=== PATIENT | female | born 1995 ===

== ENCOUNTER 2018-03-17 09:54 | Inpatient (IN) ==
[2018-03-17] MEDS ORDERED: Ondansetron 4 MG/2 ML VIAL IVP PRN (10:25)
[2018-03-17] MEDS ORDERED: Famotidine 20 MG/2 ML VIAL IVP PRN (10:25)
[2018-03-17] MEDS ORDERED: Naloxone 0.4 MG/ML INJ IVP PRN (10:25)
[2018-03-17] MEDS ORDERED: *HR* Nalbuphine 10 MG/ML AMPUL IVP PRN (10:25)
[2018-03-17] MEDS ORDERED: Lidocaine 1% 20 ML MDV INFILT PRN (10:25)
[2018-03-17] MEDS ORDERED: Ringers Solution, Lactated 1,000 ML IVC SCH (10:30)
[2018-03-17] MEDS ORDERED: miSOPROStol 25 MCG TABLET PO PRN (10:30)
--- NOTE | 2018-03-17 10:34 | OB/GYN History & Physical ---
Date of Encounter: 03/17/18 Time of Encounter: 10:30 Assessment and Plan (1) First in adolescent 16 years of age or older in third trimester Current visit: Yes Status: Acute (2) 39 weeks gestation of Current visit: Yes Status: Acute (3) Elective induction of labor planned Current visit: Yes Status: Acute Patient will be induced with Cytotec by mouth possibly Pitocin if this does not work plan is to anticipate vaginal delivery History of Present Illness HPI: Ms. Peña is a 22 year old female 1 para 0 at 39 and one sevenths weeks by last menstrual period equal to a 16-3/7 week ultrasound who presented for induction of labor secondary to term with favorable cervix. Patient was seen in the office yesterday noted to be a good 4 cm. Patient originally wanted to try going to manage labor but with her living over an hour from the hospital she was getting concerned and just wanted to be induced. She denies any leaking of fluid or vaginal bleeding still having good movement. Patient is GBS negative, rubella positive, Varicella positive, Rh+ Past Med Surg Social Fam HX - Past Medical History Source: patient, old records reviewed Medical history: no medical history Psychiatric history: no psych history - Past Surgical History Surgical History: other (Right ovarian cystectomy) - Social History Smoking Status: Current every day smoker Smokeless Tobacco Status: No Alcohol use: none Drug use: none Occupational status: unemployed Current living situation: Home - Independent Activity Level: Independent ambulation Recent Out of Country Travel Within the Last 8 Weeks: No Exposure or Possible Exposure to Illness During Travel: No - Additional Family History Additional family history: Family history noncontributory Obstetrical History - Pregnancies : 1 Para: 0 Livin Review of System OB All systems PM: reviewed and no additional remarkable complaints except as stated Exam - Constitutional Constitutional: well developed, well nourished, no acute distress, average body habitus - HEENT HEENT: EOMI, PERRL, Mucus Membranes Moist - Neck Neck exam: full ROM - Lungs Respiratory exam: CTAB - Cardiovascular Cardiovascular exam: RRR - Abdomen Abdomen: Present: bowel sounds normal, gravid ( heart tones 140s reactive occasional contractions) - Vagina Vagina: Present: normal moisture - Cervix Dilation: 4 Effacement: 90 Station: 0 Results All other labs normal. - VTE Reasons for not Prescribing Prophylaxis: Treatment not Indicated - Low risk for VTE
[2018-03-17 10:54] LABS: Basophils # 0.1 K/mcL (0.0-0.2); Basophils % 0.4 %; Eosinophils # 0.1 K/mcL (0.0-0.6); Hematocrit 40.6 % (35.3-44.9); Hemoglobin 14.1 g/dL (11.5-15.4); Immature Granulocytes % 0.9 % (0-4); Lymphocytes # 2.4 K/mcL (0.6-4.6); Lymphocytes % 16.6 %; Mean Corpuscular HGB Conc 34.7 g/dL (31.6-35.5); Mean Corpuscular Hemoglobin 35.1 pg (28.0-33.3); Mean Platelet Volume 9.2 fL (9.4-12.4); Monocytes # 0.9 K/mcL (0.0-1.3); Monocytes % 6.6 %; Neutrophils # 10.6 K/mcL (1.6-8.9); Platelet Count 316 K/mcL (140-400); Red Blood Count 4.02 M/mcL (3.82-4.97); Red Cell Distribution Width 14.6 % (11.5-14.5); Segmented Neutrophils % 74.5 %
[2018-03-17 11:02] LABS: Amphetamine Screen,Urine Negative ng/mL (Cutoff=1000); Barbiturate Screen,Urine Negative ng/mL (Cutoff=200); Benzodiazepines Screen,Urine Negative ng/mL (Cutoff=200); Cannabinoid Screen,Urine Negative ng/mL (Cutoff = 50); Cocaine Screen,Urine Negative ng/mL (Cutoff= 300); Opiate Screen,Urine Negative ng/mL (Cutoff=300); Phencyclidine Screen,Urine Negative ng/mL (Cutoff=25)
[2018-03-17 11:14] LABS: Alanine Aminotransferase 16 Units/L (7-52); Aspartate Amino Transferase 22 Units/L (13-39); BUN/Creatinine Ratio 9 (6-26); Blood Urea Nitrogen 6 mg/dL (6-20); Lactate Dehydrogenase 144 Units/L (140-271); Uric Acid 4.9 mg/dL (2.3-7.6); eGFR For African Americans > 60 (> 60); eGFR For Non-African Americans > 60 (> 60)
--- NOTE | 2018-03-17 15:08 | OB Labor Progress Note ---
Date of Encounter: 03/17/18 Time of Encounter: 15:06 Labor Progress Note - Subjective Subjective: Patient doing well. Patient denies any pain at this time. Discussed POC with patient. Patient denies any questions or concerns. - Cervix Cervix: 5/90/0 - Heart Tones Heart Tones: 120 bpm moderate amount of variability +15x15 accels no decels noted. - [place]: 2-4 min apart - Interventions Interventions: SVE, AROM moderate amount of clear fluid. Patient tolerated well. - Plan Plan: Continue labor management will start Pitocin if needed for effective labor pattern anticipate
[2018-03-17] MEDS ORDERED: *HR* FentaNYL (PF) 100 MCG/2 ML VIAL ONE (15:35)
[2018-03-17] MEDS ORDERED: Bupivacaine-MPF 0.25% 10 ML VIAL ONE (15:35)
[2018-03-17] MEDS ORDERED: EPHEDrine 50 MG/ML VIAL IVP PRN (15:59)
[2018-03-17] MEDS ORDERED: *HR* FentaNYL (PF) 100 MCG/2 ML VIAL EP ONE (15:59)
[2018-03-17] MEDS ORDERED: Bupivacaine-MPF 0.25% 10 ML VIAL EP ONE (15:59)
[2018-03-17] MEDS ORDERED: Epidural Premix (fent/bupiv) 110 ML EP SCH (16:00)
--- NOTE | 2018-03-17 16:02 | Anesthesia Procedures ---
Date of Encounter: 03/17/18 Time of Encounter: 16:01 Procedures: Anesthesia - Epidural/Spinal Patient ID/Chart reviewed: Yes Patient examined: Yes OB Eval: Gestational age: 39 OB Eval: : 1 OB Eval: Hx Para: 0 OB Eval: Dilated at (cm): 5 OB Eval: Contractions: Non-stressed pattern Consent Obtained: Yes Supplemental Oxygen: None/Room Air Site Prep: Aseptic Technique, 0.5% Chlorhexidine/Alcohol Patient position: upright Local Anesthetic: Lidocaine 1% Amount of Local Anesthetic used: 3 Touhy Needle Gauge: 18 Touhy Needle Depth (cm): 4 Catheter Depth at Skin (cm): 10 Test Dose (1.5% Lido + Epi): Volume given (mls): 3 Test Dose Result: Negative Loading Dose: 0.25% Marcaine (mls): 4 Loading Dose: Fentanyl (mcg): 100 Loading Dose: Other: 4ml nss Loading Dose Administered: Thru Touhy Needle Infusion Med: 0.125% Bupivacaine w/ 2 mcg/ml Fentanyl Infusion Rate (mls/hr): [address]: Tegaderm Interspace Used: L3-L4 Loss of Resistance (HERNAN): Yes Blood: No CSF: No Paresthesia: No
[2018-03-17] MEDS ORDERED: Epidural Premix (fent/bupiv) 110 ML EP ONE (16:52)
--- NOTE | 2018-03-17 17:03 | OB Labor Progress Note ---
Date of Encounter: 03/17/18 Time of Encounter: 17:00 Labor Progress Note - Subjective Subjective: The patient very comfortable after her epidural at this time - Cervix Cervix: 8/100/+1 - Heart Tones Heart Tones: heart tones 140s reactive - [place]: Contractions every 2 minutes - Plan Plan: Anticipate normal spontaneous vaginal delivery
[2018-03-17] MEDS ORDERED: Oxytocin 20 units/ LR 1000 mL 20 UNIT/1,000 ML BAG IVC ONE (17:43)
--- NOTE | 2018-03-17 21:45 | OB/GYN Procedure Note ---
Delivery - Delivery Date: 03/17/18 Provider: Ervin wKon Delivery induction: misoprostol Delivery augmentation: rupture of membranes, pitocin Delivery monitor: external FHT, external uterine Anesthesia: local, epidural Estimated Blood Loss: 100 - Infant (s) A Delivery Date: 03/17/18 Infant Delivery Time: 21:13 Presentation: vertex Position: JUANI Route of delivery: vacuum extraction Gender: Male Viability: Viable Pounds: 6 Ounces: 11 Weight Gram: 3.045 kg at 1 minute: 9 at 5 mins: 9 Shoulder Dystocia: not encountered Specimens collected: cord blood Placenta: spontaneous Cord: 3 umbilical vessels - Repair Episiotomy: none Laceration Description: Perineal - 1st Degree, Labial (right) - Complications Delivery complications: none Delivery comments: Patient is a 22-year-old 1 para 0 at 39-1/7 weeks who presented for induction of a second term with favorable cervix. Patient was seen in the office yesterday was 4 cm patient was asking. Delivered and living an hour from the hospital we accommodated her she is brought to labor and delivery where she received by mouth Cytotec then she was artificially ruptured with clear fluid noted. Patient did receive an epidural soon after this and progressed appropriately patient became complete the contractions spaced out. We did augment with Pitocin once patient is having contractions we had the patient stop pushing. During the pushing phase patient started having decelerations down to the 70s with slow return to baseline. The patient was up but the heart tones did not come back up to normal exercise this time a vacuum extraction would be performed. We did get consent from the mother the [place] vacuum was applied increased to 500 mmHg then with 2 pulls with 1 involuntary pop off we delivered a viable male infant in right occiput anterior presentation at 2112. There was no nuchal cord, no meconium, the was bulb suctioned the abdomen. Apgars were 9 at 1 minute, 9 at 5, infant weight was 6 lbs. 11 oz. Cord blood was collected placenta was then spontaneously delivered with a three-vessel cord. Placenta was examined and was noted have a large clot in the posterior surface suggestive of an abruption. Placenta will be sent to pathology. Cans Vacuum Tester Dr. Kwon, anesthesia epidural, with local, estimated blood loss 100 mL. Patient was noted to have a first-degree perineal laceration extending up the right labia. This was repaired with a 3-0 Monocryl in the usual fashion. Cervix and vagina was visualized intact. Patient tolerated the delivery well she will be observed 2 hours before being taken the floor. - Disposition Mom disposition: stable in LDR [place] disposition: stable in LDR
[2018-03-18] MEDS ORDERED: Measles/Mumps/Rubella Vacc 0.5 ML VIAL SQ PRN (00:41)
[2018-03-18] MEDS ORDERED: Oxytocin 20 units/ LR 1000 mL 20 UNIT/1,000 ML BAG IVC SCH (00:41)
[2018-03-18] MEDS ORDERED: Acetaminophen 325 MG TABLET PO PRN (00:41)
[2018-03-18] MEDS: *HR* HYDROcodone/Acet 5/325 mg TABLET PO PRN ×4 (01:08→20:07)
[2018-03-18 04:33] LABS: Basophils # 0.1 K/mcL (0.0-0.2); Basophils % 0.5 %; Eosinophils # 0.1 K/mcL (0.0-0.6); Eosinophils % 0.6 %; Hemoglobin 12.8 g/dL (11.5-15.4); Immature Granulocytes % 0.9 % (0-4); Lymphocytes # 2.5 K/mcL (0.6-4.6); Lymphocytes % 12.9 %; Mean Corpuscular HGB Conc 34.6 g/dL (31.6-35.5); Mean Corpuscular Hemoglobin 34.7 pg (28.0-33.3); Mean Corpuscular Volume 100.3 fL (83.0-100.0); Mean Platelet Volume 9.1 fL (9.4-12.4); Monocytes # 1.1 K/mcL (0.0-1.3); Monocytes % 5.9 %; Neutrophils # 15.2 K/mcL (1.6-8.9); Platelet Count 243 K/mcL (140-400); Red Blood Count 3.69 M/mcL (3.82-4.97); Red Cell Distribution Width 14.2 % (11.5-14.5); Segmented Neutrophils % 79.2 %
[2018-03-18] MEDS: Ibuprofen 600 MG TABLET PO PRN ×3 (05:55→23:22)
[2018-03-18] MEDS ORDERED: NON-FORMULARY MEDICATION 1 EACH EACH (Prenatal Vitamins 1 TAB) PO SCH (09:00)
[2018-03-18] MEDS: Prenatal Vit/FA 1 EACH TABLET PO SCH (09:05)
--- NOTE | 2018-03-18 10:32 | Discharge Summary ---
Date of Encounter: 03/18/18 Time of Encounter: 10:29 - Discharge Diagnosis (1) Vaginal delivery Priority: Primary Status: Acute Comments: Pain well controlled with PO pain meds Tolerating regular diet Voiding independently Passing flatus, but no BM yet Ambulating independently Lochia light well OK to discharge home tonight. - Discharge Medications Prescriptions: Ibuprofen [Motrin] 600 mg PO Q6HR PRN #30 tablet PRN Reason: Cramping Docusate [Colace] 100 mg PO BID #30 capsule Home Medications: Vitamins 1 tab PO DAILY 03/17/18 [History] Acetaminophen [Tylenol] 650 mg PO Q6HR PRN tablet 03/18/18 [Rx] Docusate [Colace] 100 mg PO BID #30 capsule 03/18/18 [Rx] Ibuprofen [Motrin] 600 mg PO Q6HR PRN #30 tablet 03/18/18 [Rx] Allergies/Adverse Reactions: 3 Allergy/AdvReac Type Severity Reaction Status Date / Time No Known Allergies Allergy Verified 03/17/18 10:32 Data Procedures and tests throughout hospitalization: Laboratory Tests 03/17/18 03/17/18 03/17/18 10:18 10:18 10:18 WBC 14.2 H RBC 4.02 Hgb 14.1 Hct 40.6 MCV 101.0 H MCH 35.1 H MCHC 34.7 RDW 14.6 H Plt Count 316 MPV 9.2 L Immature Gran % 0.9 Seg Neutrophils % 74.5 Lymphocytes % 16.6 Monocytes % 6.6 Eosinophils % 1.0 Basophils % 0.4 Neutrophils # 10.6 H Lymphocytes # 2.4 Monocytes # 0.9 Eosinophils # 0.1 Basophils # 0.1 BUN 6 Creatinine 0.67 Est GFR ( Amer) > 60 Est GFR (Non-Af Amer) > 60 BUN/Creatinine Ratio 9 Uric Acid 4.9 AST 22 ALT 16 Lactate Dehydrogenase 144 Urine Opiates Screen Negative Ur Barbiturates Screen Negative Ur Phencyclidine Scrn Negative Ur Amphetamines Screen Negative U Benzodiazepines Scrn Negative Urine Cocaine Screen Negative U Marijuana (THC) Screen Negative 03/18/18 04:10 WBC 19.2 H RBC 3.69 L Hgb 12.8 Hct 37.0 MCV 100.3 H MCH 34.7 H MCHC 34.6 RDW 14.2 Plt Count 243 MPV 9.1 L Immature Gran % 0.9 Seg Neutrophils % 79.2 Lymphocytes % 12.9 Monocytes % 5.9 Eosinophils % 0.6 Basophils % 0.5 Neutrophils # 15.2 H Lymphocytes # 2.5 Monocytes # 1.1 Eosinophils # 0.1 Basophils # 0.1 BUN Creatinine Est GFR ( Amer) Est GFR (Non-Af Amer) BUN/Creatinine Ratio Uric Acid AST ALT Lactate Dehydrogenase Urine Opiates Screen Ur Barbiturates Screen Ur Phencyclidine Scrn Ur Amphetamines Screen U Benzodiazepines Scrn Urine Cocaine Screen U Marijuana (THC) Screen Labs on day of discharge: Labs from last 24 hours 03/18/18 03/17/18 03/17/18 04:10 10:18 10:18 WBC 19.2 H RBC 3.69 L Hgb 12.8 Hct 37.0 MCV 100.3 H MCH 34.7 H MCHC 34.6 RDW 14.2 Plt Count 243 MPV 9.1 L Immature Gran % 0.9 Seg Neutrophils % 79.2 Lymphocytes % 12.9 Monocytes % 5.9 Eosinophils % 0.6 Basophils % 0.5 Neutrophils # 15.2 H Lymphocytes # 2.5 Monocytes # 1.1 Eosinophils # 0.1 Basophils # 0.1 BUN 6 Creatinine 0.67 Est GFR ( Amer) > 60 Est GFR (Non-Af Amer) > 60 BUN/Creatinine Ratio 9 Uric Acid 4.9 AST 22 ALT 16 Lactate Dehydrogenase 144 Urine Opiates Screen Negative Ur Barbiturates Screen Negative Ur Phencyclidine Scrn Negative Ur Amphetamines Screen Negative U Benzodiazepines Scrn Negative Urine Cocaine Screen Negative U Marijuana (THC) Screen Negative 03/17/18 10:18 WBC 14.2 H RBC 4.02 Hgb 14.1 Hct 40.6 MCV 101.0 H MCH 35.1 H MCHC 34.7 RDW 14.6 H Plt Count 316 MPV 9.2 L Immature Gran % 0.9 Seg Neutrophils % 74.5 Lymphocytes % 16.6 Monocytes % 6.6 Eosinophils % 1.0 Basophils % 0.4 Neutrophils # 10.6 H Lymphocytes # 2.4 Monocytes # 0.9 Eosinophils # 0.1 Basophils # 0.1 BUN Creatinine Est GFR ( Amer) Est GFR (Non-Af Amer) BUN/Creatinine Ratio Uric Acid AST ALT Lactate Dehydrogenase Urine Opiates Screen Ur Barbiturates Screen Ur Phencyclidine Scrn Ur Amphetamines Screen U Benzodiazepines Scrn Urine Cocaine Screen U Marijuana (THC) Screen Date of admission: 03/17/18 09:54 Primary care physician: PCP NONE Consults: 03/18/18 00:41 Consult to Cam Milling Machine Operator [CONS] Routine Comment: Vaginal delivery, consult needed Discharging clinician: Joan Unger Anticipated date of discharge: 03/18/18 - Patient Status Disposition: Home, Self-Care Condition: Good Functional capacity at discharge: independent ambulation Overall status at discharge: patient is progressing back to baseline - Discharge Instructions Follow Up With: NONE,PCP [Primary Care Provider] - Ervin Kwon DO [Partnered Physician] - - Diet and Activity Activity: increase activity as tolerated Diet: regular diet Hospital Course Reason for admission: induction of labor, IUP at term Delivery: Episiotomy: none Laceration: 1st degree, other (right labial) Other procedures: none complications: hematoma (right labial resolving) Discharge diagnosis: IUP at term delivered baby: male Time Attestation: Total time spent providing and/or coordinating discharge services: Time Spent: Less than 30 minutes Exam - Constitutional Vitals: Temp Pulse Resp BP Pulse Ox 98.1 F 66 16 116/72 98 03/18/18 08:17 03/18/18 08:17 03/18/18 09:12 03/18/18 08:17 03/18/18 08:17 General appearance IM: A&O X 3 - Respiratory Respiratory exam: Present: CTAB - Cardiovascular Cardiovascular exam IM: Present: RRR, +S1, +S2 - GI/Abdominal GI/Abdominal exam IM: normal bowel sounds, no peritoneal signs - Rectal Rectal exam: deferred - Uterine Tone: Firm Uterus Position: At Umbilicus, Midline - Extremities Exam Extremities exam IM: Present: normal inspection, radial pulses palpable and symmetrical - Neurological Exam Neurological exam: alert, oriented X3 - Psychiatric Additional comments: Pt reports remote history of depression. S/sx of PPD discussed and pt and partner verbalized understanding of when to call.
[2018-03-18] MEDS ORDERED: Lanolin 7 G OINT...G. TP PRN (20:26)
[2018-03-19] MEDS: *HR* HYDROcodone/Acet 5/325 mg TABLET PO PRN (06:18)
--- NOTE | 2018-03-19 07:33 | Discharge Summary ---
Date of Encounter: 03/19/18 Time of Encounter: 07:31 - Discharge Diagnosis (1) Vaginal delivery Priority: Primary Status: Acute Comments: Pt meeting all milestones and all same as yesterday. She elected to stay overnight because infant was not eligible for discharge. Both are ready for discharge this morning. - Discharge Medications Prescriptions: Ibuprofen [Motrin] 600 mg PO Q6HR PRN #30 tablet PRN Reason: Cramping Docusate [Colace] 100 mg PO BID #30 capsule Home Medications: Vitamins 1 tab PO DAILY 03/17/18 [History] Acetaminophen [Tylenol] 650 mg PO Q6HR PRN tablet 03/18/18 [Rx] Docusate [Colace] 100 mg PO BID #30 capsule 03/18/18 [Rx] Ibuprofen [Motrin] 600 mg PO Q6HR PRN #30 tablet 03/18/18 [Rx] Allergies/Adverse Reactions: 3 Allergy/AdvReac Type Severity Reaction Status Date / Time No Known Allergies Allergy Verified 03/17/18 10:32 Data Procedures and tests throughout hospitalization: Laboratory Tests 03/17/18 03/17/18 03/17/18 10:18 10:18 10:18 WBC 14.2 H RBC 4.02 Hgb 14.1 Hct 40.6 MCV 101.0 H MCH 35.1 H MCHC 34.7 RDW 14.6 H Plt Count 316 MPV 9.2 L Immature Gran % 0.9 Seg Neutrophils % 74.5 Lymphocytes % 16.6 Monocytes % 6.6 Eosinophils % 1.0 Basophils % 0.4 Neutrophils # 10.6 H Lymphocytes # 2.4 Monocytes # 0.9 Eosinophils # 0.1 Basophils # 0.1 BUN 6 Creatinine 0.67 Est GFR ( Amer) > 60 Est GFR (Non-Af Amer) > 60 BUN/Creatinine Ratio 9 Uric Acid 4.9 AST 22 ALT 16 Lactate Dehydrogenase 144 Urine Opiates Screen Negative Ur Barbiturates Screen Negative Ur Phencyclidine Scrn Negative Ur Amphetamines Screen Negative U Benzodiazepines Scrn Negative Urine Cocaine Screen Negative U Marijuana (THC) Screen Negative 03/18/18 04:10 WBC 19.2 H RBC 3.69 L Hgb 12.8 Hct 37.0 MCV 100.3 H MCH 34.7 H MCHC 34.6 RDW 14.2 Plt Count 243 MPV 9.1 L Immature Gran % 0.9 Seg Neutrophils % 79.2 Lymphocytes % 12.9 Monocytes % 5.9 Eosinophils % 0.6 Basophils % 0.5 Neutrophils # 15.2 H Lymphocytes # 2.5 Monocytes # 1.1 Eosinophils # 0.1 Basophils # 0.1 BUN Creatinine Est GFR ( Amer) Est GFR (Non-Af Amer) BUN/Creatinine Ratio Uric Acid AST ALT Lactate Dehydrogenase Urine Opiates Screen Ur Barbiturates Screen Ur Phencyclidine Scrn Ur Amphetamines Screen U Benzodiazepines Scrn Urine Cocaine Screen U Marijuana (THC) Screen Date of admission: 03/17/18 09:54 Primary care physician: PCP NONE Consults: 03/18/18 00:41 Consult to Freight Booker [CONS] Routine Comment: Vaginal delivery, consult needed Discharging clinician: Joan Unger Anticipated date of discharge: 03/19/18 - Patient Status Disposition: Home, Self-Care Condition: Good Overall status at discharge: patient is progressing back to baseline - Discharge Instructions Follow Up With: Ervin Kwon DO [Partnered Physician] - NONE,PCP [Primary Care Provider] - - Diet and Activity Activity: increase activity as tolerated Diet: regular diet Hospital Course Reason for admission: induction of labor, IUP at term Delivery: Episiotomy: none Laceration: 1st degree, other (right labial) Other procedures: none complications: none Discharge diagnosis: IUP at term delivered [place] baby: male Time Attestation: Total time spent providing and/or coordinating discharge services: Time Spent: Less than 30 minutes Exam - Constitutional Vitals: Temp Pulse Resp BP Pulse Ox 98.1 F 62 16 123/66 98 03/19/18 06:20 03/18/18 19:48 03/18/18 19:48 03/18/18 19:48 03/18/18 19:48 General appearance IM: A&O X 3 - Respiratory Respiratory exam: Present: CTAB - Cardiovascular Cardiovascular exam IM: Present: RRR, +S1, +S2 - GI/Abdominal GI/Abdominal exam IM: normal bowel sounds, no peritoneal signs - Rectal Rectal exam: deferred - Uterine Tone: Firm Uterus Position: 2 Fingers Below Umbilicus, Midline - Extremities Exam Extremities exam IM: Present: normal inspection, radial pulses palpable and symmetrical - Neurological Exam Neurological exam: alert, oriented X3 - Psychiatric Additional comments: Pt reports feeling mentally well. No changes from yesterday's assessment.
[2018-03-19] MEDS: Prenatal Vit/FA 1 EACH TABLET PO SCH (07:42)
[2018-03-19] MEDS: Ibuprofen 600 MG TABLET PO PRN (07:43)
[2018-03-19 08:30] VITALS: BP 113/71
== END 2018-03-19 09:00 | disposition home or self-care (01) | DRG 560 ==
LOC: 1NENULAB 09:54 → 1NENUOBS 03-18 00:38
PROVIDERS: ADMIT Obstetrics & Gynecology; ATTEND Obstetrics & Gynecology